=== PATIENT | male | born 1980 | race Caucasian/White ===

== ENCOUNTER → 2016-12-04 | Outpatient (CLI) | payer BC ==
[2016-12-04 11:26] LABS: HEMOGLOBIN 15.4 g/dL (14.1-18.0); LYMPH # 1.8 K/mm3 (0.7-4.5)
[2016-12-04 12:43] LABS: BUN 11 mg/dL (7-18)
[2016-12-04 12:45] LABS: GFR (ESTIMATED) 76 ML/MIN (>60)
== END ==
LOC: LAB 10:59
PROVIDERS: Internal Medicine Adolescent Medicine
DX: R10.13 Epigastric pain (principal)